=== PATIENT | female | born 1955 | race Caucasian/White ===

== ENCOUNTER 2020-10-02 10:25 | Observation (INO) | payer BC ==
[2020-10-02] MEDS ORDERED: Sodium Chloride 0.9% 1000 ML 1,000 ML IV STA (11:07)
[2020-10-02] MEDS ORDERED: solu-MEDROL 125 MG IV ONE (11:07)
[2020-10-02] MEDS ORDERED: Zofran 4 MG/2 ML VIAL IV ONE (11:10)
[2020-10-02] MEDS ORDERED: Combivent Inhaler COMMON CANISTER IH SCH (11:15)
[2020-10-02] MEDS ORDERED: Zofran 4 MG/2 ML VIAL ONE (11:19)
[2020-10-02] MEDS ORDERED: Sodium Chloride 0.9% 1000 ML 1,000 ML ONE (11:19)
[2020-10-02] MEDS ORDERED: solu-MEDROL 125 MG ONE (11:19)
[2020-10-02 11:35] LABS: A-aADO2 46; ABG HEMOGLOBIN 10.9; ABG POTASSIUM 3.4 (3.5-5.1); ABG SITE RIGHT RADIAL; ALLEN TEST OK? YES; ARTERIAL BLD GAS O2 SATURATION 99.4 % (95-100); ARTERIAL BLOOD GAS BASE EXCESS -0.2 (-2.0-2.0); ARTERIAL BLOOD GAS FIO2 28 %; ARTERIAL BLOOD GAS PCO2 29 mmHg (35-45); ARTERIAL BLOOD GAS PO2 117 mmHg (75-100); ARTERIAL BLOOD GAS pH 7.49 (7.35-7.45); CARBOXYHEMOGLOBIN 5.8 % THgb (0.0-6.9); HCO3- 22.1 (22-28); HGB O2 SAT 92.8 g/dF (94-100); Lactic Acid 1.3 (0.4-2.0); Methhemoglobin 0.8 % (1.4-1.5); paO2 pAO1 0.72
--- NOTE | 2020-10-02 11:41 | ERPHSYRPT ---
- History of Present Illness Time Seen by Provider: 10/02/20 10:36 Source: patient Exam Limitations: no limitations Patient Subjective Stated Complaint: SOB, cough, NVD Triage Nursing Assessment: pt to ED c/o SOB, cough since August and NVD onset last night. pt states she was tested for COVID in Aug and was negative at that time. denies known COVID exposure and attempts to stay home if possible. lung sounds diminished throughout. heart sounds clear. struggles with speaking in full sentences. does not wear home O2. 95% on RA. Physician History: 65 years old female with history of COPD, tobacco abuse, hypertension presented in the ER with little over a month history of cough congestion shortness of breath despite using inhaler/nebulizer and steroids with progressive worsening lately where she gets short of breath with minimal activity associated with chest tightness/wheezing but no fever or chills. She has a cough productive of clear to yellow sputum with no hemoptysis. Denies any chest pain or palpitatio ns. She also has nausea since yesterday and 2-3 episodes of loose stool since morning without any abdominal pain. Denies any known sick contact. Patient was tested in August for COVID-19 was negative but patient reports she is not been feeling well since then. Timing/Duration: week(s), intermittent, gradual onset, worse Activities at Onset: rest Severity of Dyspnea-Max: moderate Severity of Dyspnea-Current: moderate Possible Cause: occasional episodes Modifying Factors: Improves With: albuterol nebulizer. Worsens With: activity, coughing, deep breath, exertion Associated Symptoms: cough, chest pain/discomfort, edema, wheezing, ankle swelling, leg swelling, productive cough, No fever, No insomnia, No loss of oralia etite, No lightheadedness, No weakness, No chills, No calf pain, No heaviness, No painful breathing Allergies/Adverse Reactions: No Known Drug Allergies Allergy (Verified 10/02/20 15:11) Home Medications: Amlodipine Besylate 10 mg [Norvasc 10 MG] 10 mg PO DAILY 04/06/16 [History] Fluticasone Propionate [Flonase NASAL] 1 spray INTRANASAL DAILY 04/06/16 [History] Hctz/Triamterene 25/37.5 mg [Maxzide 25MG] 1 tab PO DAILY 10/02/20 [History] Sertraline HCl 50 mg PO DAILY 10/02/20 [History] Simvastatin 10 mg PO DAILY 10/02/20 [History] Hx Tetanus, Diphtheria Vaccination/Date Given: Yes Hx Influenza Vaccination/Date Given: Yes Hx Pneumococcal Vaccination/Date Given: No Travel Risk - International Travel Have you traveled outside of the country in past 3 weeks: No - Coronavirus Screening Are you exhibiting any of the following symptoms?: Yes Symptoms: Cough: New Onset, Shortness of Breath, Vomiting/Diarrhea, Headaches/Body Aches/Fatigue Close contact with a COVID-19 positive Pt in past 14-21 Days: No - Review of Systems Constitutional: Fatigue, Malaise Eyes: No Symptoms Ears, Nose, & Throat: Nose Congestion Respiratory: Cough, Dyspnea, Dyspnea on Exertion ([place]), Wheezing Cardiac: No Symptoms Abdominal/Gastrointestinal: Nausea, Diarrhea Genitourinary Symptoms: No Symptoms Musculoskeletal: Myalgias Neurological: No Symptoms Psychological: No Symptoms Endocrine: No Symptoms Hematologic/Lymphatic: No Symptoms Immunological/Allergic: No Symptoms - Past Medical History Pertinent Past Medical History: Yes Neurological History: No Pertinent History ENT History: No Pertinent History Cardiac History: High Cholesterol, Hypertension Respiratory History: No Pertinent History Endocrine Medical History: No Pertinent History Musculoskeletal History: Arthritis GI Medical History: No Pertinent History History: Other Psycho-Social History: No Pertinent History Female Reproductive Disorders: No Pertinent History Other Medical History: frequency - Past Surgical History Past Surgical History: Yes Neuro Surgical History: No Pertinent History Cardiac: Cardiac Catheterization Respiratory: No Pertinent History Gastrointestinal: Cholecystectomy Genitourinary: No Pertinent History Musculoskeletal: No Pertinent History Female Surgical History: Tubal Ligation, Other Other Surgical History: breast tumor removed at age 22, uterine ablation - Social History Smoking Status: Former smoker How long have you smoked: 30 years Exposure to second hand smoke: No Drug Use: none Patient Lives Alone: No - Female History Hx Now: No - Nursing Vital Signs Nursing Vital Signs: Initial Vital Signs Temperature 98.6 F 10/02/20 10:25 Pulse Rate 101 H 10/02/20 10:25 Respiratory Rate 25 H 10/02/20 10:25 Blood Pressure 164/94 10/02/20 10:25 O2 Sat by Pulse Oximetry 93 L 10/02/20 10:25 Pain Scale Pain Intensity 0 - Physical Exam General Appearance: no apparent distress, alert, anxiety Eye Exam: PERRL/EOMI, eyes nml inspection Ears, Nose, Throat Exam: hearing grossly normal, nasal congestion, pharyngeal erythema Neck Exam: normal inspection, non-tender, supple, full range of motion Respiratory Exam: airway intact, diminished breath sounds, wheezing, No chest tenderness, No respiratory distress Cardiovascular/Chest Exam: normal heart sounds, regular rate/rhythm Abdominal/Gastrointestinal Exam: soft, normal bowel sounds, No tenderness Extremity Exam: non-tender, normal range of motion, normal inspection Neurologic Exam: alert, oriented x 3, cooperative, 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 II-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 nml as tested Skin Exam: normal color, warm SpO2 Interpretation: normal SpO2: 95 O2 Delivery: Room Air - Course EKG Interpreted by Me: RATE ([id number]), Sinus Tach, NORMAL AXIS, prolonged QT interval, Left Bundle Branch Block, Q-wave, Non-specific ST Changes Ordered Tests: Active Orders 24 hr Category Date Time Status Bedrest with BRP/BSC ROUTINE Activity 10/02/20 15:00 Active Up With Assistance ROUTINE Activity 10/02/20 15:00 Active Dredge Operator STAT Care 10/02/20 11:08 Completed Code Status Order ROUTINE Care 10/02/20 15:00 Active EKG-ER Only STAT Care 10/02/20 11:07 Completed Fall Protocol ROUTINE Care 10/02/20 15:00 Active IV Care Q6H Care 10/02/20 15:00 Active IV Insertion STAT Care 10/02/20 11:07 Completed NPO (ED) STAT Care 10/02/20 11:[address] in Observation ROUTINE Care 10/02/20 15:00 Active Raúl Blake ROUTINE Care 10/02/20 15:00 Active Weight,Daily 0600 Care 10/02/20 15:00 Active Heart-Healthy Diet Diet 10/02/20 Dinner Active CHEST WITH CONTRAST [CT] Stat Exams 10/02/20 12:41 Completed OBSTR/ACUTE ABDOMEN SERIES Stat Exams 10/02/20 11:10 Completed ARTERIAL BLOOD GASES Stat Lab 10/02/20 11:32 Completed BLOOD CULTURE Stat Lab 10/02/20 11:40 Received CBC W DIFF AM.LAB Lab 10/03/20 04:00 Ordered CBC W DIFF Stat Lab 10/02/20 11:25 Completed CMP AM.LAB Lab 10/03/20 04:00 Ordered CMP Stat Lab 10/02/20 11:25 Completed CULTURE,URINE Stat Lab 10/02/20 16:30 Received D-DIMER QUANTITATIVE Stat Lab 10/02/20 12:13 Completed Lactic Acid Stat Lab 10/02/20 11:32 Completed MAGNESIUM Stat Lab 10/02/20 11:25 Completed NT PRO BNP Stat Lab 10/02/20 11:25 Completed TROPONIN Q3H Lab 10/02/20 11:25 Completed TROPONIN Q3H Lab 10/02/20 14:25 Completed TROPONIN Q3H Lab 10/02/20 18:03 Received TROPONIN Q3H Lab 10/02/20 20:15 Ordered TROPONIN Q3H Lab 10/02/20 23:15 Ordered UA W/RFX UR CULTURE Stat Lab 10/02/20 16:30 Completed Respiratory MDI STAT RT 10/02/20 11:44 Completed Respiratory Therapy Assessment DAILY RT 10/02/20 11:45 Active Transfer Order Routine Transfer 10/02/20 Completed Medication Summary Generic Name Dose Route Start Last Admin Trade Name Freq PRN Reason Stop Dose Admin Acetaminophen 650 mg 10/02/20 15:00 Tylenol 325 Mg PO 11/01/20 14:59 Q4H PRN PRN PAIN AND/OR FEVER Albuterol Sulfate 2.5 mg 10/02/20 19:00 Proventil 2.5 Mg/3 Ml Neb IH 11/01/20 18:59 QIDRT [facility] Amlodipine Besylate 10 mg 10/03/20 10:00 Norvasc 5 Mg PO 11/02/20 09:59 DAILY THOMAS Budesonide 0.5 mg 10/02/20 19:00 Pulmicort 0.5 Mg/2 Ml Respules IH 11/01/20 18:59 BIDRT THOMAS Famotidine 20 mg 10/02/20 22:00 Pepcid 20 Mg Vial IV 11/01/20 21:59 Q12HT THOMAS Fluticasone Propionate 0 gm 10/03/20 10:00 Flonase Nasal NS 11/02/20 09:59 DAILY THOMAS Furosemide 80 mg 10/02/20 17:00 10/02/20 16:41 Furosemide 100mg/10 Ml Vial IV 11/01/20 16:59 80 mg DAILY THOMAS Administration Azithromycin 500 mg in 250 mls @ 250 mls/hr 10/03/20 10:00 Zithromax 500 Mg/ 250 Ml Nacl Premix IV 11/02/20 09:59 Q24H10 THOMAS Ceftriaxone Sodium/Dextrose 1 g in 50 mls @ 100 mls/hr 10/03/20 10:00 Rocephin 1 Gm-D5w 50 Ml Bag IV 11/02/20 09:59 Q24H10 THOMAS Insulin Human Lispro 0 unit 10/02/20 15:00 Humalog SQ 11/01/20 14:59 UD PRN HYPERGLYCEMIA Methylprednisolone Sodium Succinate 80 mg 10/02/20 18:00 10/02/20 17:35 Solu-Medrol 125 Mg IV 11/01/20 17:59 80 mg Q6HT THOMAS Administration Sertraline HCl 50 mg 10/03/20 10:00 Zoloft 50 Mg Tablet PO 11/02/20 09:59 DAILY THOMAS Simvastatin 10 mg 10/03/20 22:00 Zocor 10mg PO 11/02/20 21:59 HS THOMAS Triamterene/Hydrochlorothiazide 1 tab 10/03/20 10:00 Maxzide-25mg Tablet PO 11/02/20 09:59 DAILY THOMAS Discontinued Medications Generic Name Dose Route Start Last Admin Trade Name Freq PRN Reason Stop Dose Admin Albuterol Sulfate 4 puff 10/02/20 11:44 10/02/20 11:30 Ventolin Common Canister 10/02/20 11:45 4 puff STAT ONE Administration Albuterol/Ipratropium 2 puff 10/02/20 11:15 Combivent Inhaler Common Canister 11/01/20 11:14 UD THOMAS Albuterol/Ipratropium 3 ml 10/02/20 19:00 10/02/20 15:08 Duoneb 0.5-3 Mg/3 Ml Neb 11/01/20 18:59 3 ml Q6HRT THOMAS Administration Sodium Chloride 1,000 mls @ 499 mls/hr 10/02/20 11:07 10/02/20 13:29 Sodium Chloride 0.9% 1000 Ml IV 10/02/20 13:07 Infused .Q2H1M STA Infusion Sodium Chloride Confirm 10/02/20 11:19 Sodium Chloride 0.9% 1000 Ml Administered 10/02/20 11:20 Dose 1,000 mls @ ud .ROUTE .STK-MED ONE Ceftriaxone Sodium/Dextrose 2 g in 50 mls @ 100 mls/hr 10/02/20 12:13 10/02/20 13:31 Rocephin 2 Gm-D5w 50ml Bag IV 10/02/20 12:42 Infused STAT STA Infusion Azithromycin 500 mg in 250 mls @ 250 mls/hr 10/02/20 12:13 10/02/20 14:39 Zithromax 500 Mg/ 250 Ml Nacl Premix IV 10/02/20 13:12 250 mls/hr STAT STA 250 mls/hr Administration Ceftriaxone Sodium/Dextrose Confirm 10/02/20 13:15 Rocephin 2 Gm-D5w 50ml Bag Administered 10/02/20 13:16 Dose 2 g in 50 mls @ ud IV .STK-MED ONE Azithromycin Confirm 10/02/20 14:39 Zithromax 500 Mg/ 250 Ml Nacl Premix Administered 10/02/20 14:40 Dose 500 mg in 250 mls @ ud IV .STK-MED ONE Methylprednisolone Sodium Succinate 125 mg 10/02/20 11:07 10/02/20 11:21 Solu-Medrol 125 Mg IV 10/02/20 11:08 125 mg STAT ONE Administration Methylprednisolone Sodium Succinate Confirm 10/02/20 11:19 Solu-Medrol 125 Mg Administered 10/02/20 11:20 Dose 125 mg .ROUTE .STK-MED ONE Ondansetron HCl 4 mg 10/02/20 11:10 10/02/20 11:21 Zofran 4 Mg/2 Ml Vial IV 10/02/20 11:11 4 mg STAT ONE Administration Ondansetron HCl Confirm 10/02/20 11:19 Zofran 4 Mg/2 Ml Vial Administered 10/02/20 11:20 Dose 4 mg .ROUTE .STK-MED ONE Lab/Rad Data: Laboratory Result Diagrams 10/02/20 11:25 10/02/20 11:25 Laboratory Results 10/02/20 10/02/20 10/02/20 Range/Units 14:25 13:05 12:13 WBC (4.0-10.5) K/mm3 RBC (4.1-5.4) M/mm3 Hgb (12.0-16.0) gm/dl Hct (35-47) % MCV (78-100) fl MCH (26-32) pg MCHC (32-36) g/dl RDW (11.5-14.0) % Plt Count (150-450) K/mm3 MPV (7.5-11.0) fl Gran % (36.0-66.0) % Eos # (Auto) (0-0.5) Absolute Lymphs (auto) (1.0-4.6) Absolute Monos (auto) (0.0-1.3) Lymphocytes % (24.0-44.0) % Monocytes % (0.0-12.0) % Eosinophils % (0.00-5.0) % Basophils % (0.0-0.4) % Absolute Granulocytes (1.4-6.9) Basophils # (0-0.4) D-Dimer 1330 H* (215-500) ng/mL Puncture Site pCO2 (35-45) mmHg pO2 (75-100) mmHg Base Excess (-2.0-2.0) O2 Saturation (94-100) g/dF ABG pH (7.35-7.45) ABG HCO3 (22-28) ABG O2 Sat (Measured) (95-100) % Nikolay Test A-a Gradient a/A Ratio Hemoglobin Carboxyhemoglobin (0.0-6.9) % THgb Methemoglobin (1.4-1.5) % Temperature C POC O2 Flow Rate % Sodium (137-145) mmol/L Potassium (3.5-5.1) mmol/L Chloride (98-107) mmol/L Carbon Dioxide (22-30) mmol/L Anion Gap (5-15) MEQ/L BUN (7-17) mg/dL Creatinine (0.52-1.04) mg/dL Estimated GFR ML/MIN Glucose (74-106) mg/dL Lactic Acid (0.4-2.0) Calcium (8.4-10.2) mg/dL Magnesium (1.6-2.3) mg/dL Total Bilirubin (0.2-1.3) mg/dL AST (14-36) U/L ALT (0-35) U/L Alkaline Phosphatase (38-126) U/L Troponin I 0.027 (0.000-0.034) ng/mL NT-Pro-B Natriuret Pep (0-900) pg/mL Serum Total Protein (6.3-8.2) g/dL Albumin (3.5-5.0) g/dL SARS-CoV-2 (PCR) NEGATIVE (NEGATIVE) 10/02/20 10/02/20 10/02/20 Range/Units 11:32 11:25 11:25 WBC (4.0-10.5) K/mm3 RBC (4.1-5.4) M/mm3 Hgb (12.0-16.0) gm/dl Hct (35-47) % MCV (78-100) fl MCH (26-32) pg MCHC (32-36) g/dl RDW (11.5-14.0) % Plt Count (150-450) K/mm3 MPV (7.5-11.0) fl Gran % (36.0-66.0) % Eos # (Auto) (0-0.5) Absolute Lymphs (auto) (1.0-4.6) Absolute Monos (auto) (0.0-1.3) Lymphocytes % (24.0-44.0) % Monocytes % (0.0-12.0) % Eosinophils % (0.00-5.0) % Basophils % (0.0-0.4) % Absolute Granulocytes (1.4-6.9) Basophils # (0-0.4) D-Dimer (215-500) ng/mL Puncture Site RIGHT RADIAL pCO2 29 L (35-45) mmHg pO2 117 H (75-100) mmHg Base Excess -0.2 (-2.0-2.0) O2 Saturation 92.8 L (94-100) g/dF ABG pH 7.49 H (7.35-7.45) ABG HCO3 22.1 (22-28) ABG O2 Sat (Measured) 99.4 (95-100) % Nikolay Test YES A-a Gradient 46 a/A Ratio 0.72 Hemoglobin 10.9 Carboxyhemoglobin 5.8 (0.0-6.9) % THgb Methemoglobin 0.8 L (1.4-1.5) % Temperature 37.0 C POC O2 Flow Rate 28 % Sodium 131 L (137-145) mmol/L Potassium 3.4 L 3.3 L (3.5-5.1) mmol/L Chloride 100 (98-107) mmol/L Carbon Dioxide 22 (22-30) mmol/L Anion Gap 12.4 (5-15) MEQ/L BUN 15 (7-17) mg/dL Creatinine 0.67 (0.52-1.04) mg/dL Estimated GFR > 60.0 ML/MIN Glucose 140 H (74-106) mg/dL Lactic Acid 1.3 (0.4-2.0) Calcium 8.9 (8.4-10.2) mg/dL Magnesium 1.9 (1.6-2.3) mg/dL Total Bilirubin 1.20 (0.2-1.3) mg/dL AST 28 (14-36) U/L ALT 23 (0-35) U/L Alkaline Phosphatase 71 (38-126) U/L Troponin I 0.022 (0.000-0.034) ng/mL NT-Pro-B Natriuret Pep 9890 H (0-900) pg/mL Serum Total Protein 6.9 (6.3-8.2) g/dL Albumin 4.0 (3.5-5.0) g/dL SARS-CoV-2 (PCR) (NEGATIVE) 10/02/20 Range/Units 11:25 WBC 13.3 H (4.0-10.5) K/mm3 RBC 4.05 L (4.1-5.4) M/mm3 Hgb 10.5 L (12.0-16.0) gm/dl Hct 34.4 L (35-47) % MCV 84.9 (78-100) fl MCH 25.9 L (26-32) pg MCHC 30.5 L (32-36) g/dl RDW 16.7 H (11.5-14.0) % Plt Count 366 (150-450) K/mm3 MPV 10.7 (7.5-11.0) fl Gran % 85.6 H (36.0-66.0) % Eos # (Auto) 0.01 (0-0.5) Absolute Lymphs (auto) 1.15 (1.0-4.6) Absolute Monos (auto) 0.73 (0.0-1.3) Lymphocytes % 8.6 L (24.0-44.0) % Monocytes % 5.5 (0.0-12.0) % Eosinophils % 0.1 (0.00-5.0) % Basophils % 0.2 (0.0-0.4) % Absolute Granulocytes 11.39 H (1.4-6.9) Basophils # 0.03 (0-0.4) D-Dimer (215-500) ng/mL Puncture Site pCO2 (35-45) mmHg pO2 (75-100) mmHg Base Excess (-2.0-2.0) O2 Saturation (94-100) g/dF ABG pH (7.35-7.45) ABG HCO3 (22-28) ABG O2 Sat (Measured) (95-100) % Nikolay Test A-a Gradient a/A Ratio Hemoglobin Carboxyhemoglobin (0.0-6.9) % THgb Methemoglobin (1.4-1.5) % Temperature C POC O2 Flow Rate % Sodium (137-145) mmol/L Potassium (3.5-5.1) mmol/L Chloride (98-107) mmol/L Carbon Dioxide (22-30) mmol/L Anion Gap (5-15) MEQ/L BUN (7-17) mg/dL Creatinine (0.52-1.04) mg/dL Estimated GFR ML/MIN Glucose (74-106) mg/dL Lactic Acid (0.4-2.0) Calcium (8.4-10.2) mg/dL Magnesium (1.6-2.3) mg/dL Total Bilirubin (0.2-1.3) mg/dL AST (14-36) U/L ALT (0-35) U/L Alkaline Phosphatase (38-126) U/L Troponin I (0.000-0.034) ng/mL NT-Pro-B Natriuret Pep (0-900) pg/mL Serum Total Protein (6.3-8.2) g/dL Albumin (3.5-5.0) g/dL SARS-CoV-2 (PCR) (NEGATIVE) - Progress Progress: improved Air Movement: good Progress Note: 10/02/20 13:06 65 years old is evaluated for cough congestion with some diarrhea along with generalized weakness fatigue. Patient has bilateral pneumonia. No PE. Started on antibiotics. Discussed with Dr. Galicia and patient is admitted. COVID-19 is negative. Blood Culture(s) Obtained: Yes Antibiotics given: Yes Discussed with : Milka Will see patient in: hospital (observation) Counseled pt/family regarding: lab results, diagnosis, rad results, smoking cessation - Departure Departure Disposition: Observation Clinical Impression: Gastroenteritis Pneumonia Qualifiers: Pneumonia type: due to unspecified organism Laterality: bilateral Lung location: lower lobe of lung Qualified Code(s): J18.9 - Pneumonia, unspecified organism Condition: Stable Critical Care Time: No
[2020-10-02] MEDS ORDERED: VENTOLIN COMMON CANISTER IH ONE (11:44)
[2020-10-02 11:51] LABS: Absolute Neutrophil Ct (ANC) 11.39 (1.4-6.9); BASOPHIL % 0.2 % (0.0-0.4); Basophil (Absolute #) 0.03 (0-0.4); Eosinophil % 0.1 % (0.00-5.0); Eosinophil (Absolute #) 0.01 (0-0.5); Hematocrit 34.4 % (35-47); Hemoglobin 10.5 gm/dl (12.0-16.0); Lymphocyte (Absolute #) 1.15 (1.0-4.6); Lymphocytes % 8.6 % (24.0-44.0); Mean Cell Volume 84.9 fl (78-100); Mean Corpuscular Hemoglobin 25.9 pg (26-32); Mean Corpuscular Hgb Concent. 30.5 g/dl (32-36); Mean Platelet Volume 10.7 fl (7.5-11.0); Monocyte (Absolute #) 0.73 (0.0-1.3); Monocytes % 5.5 % (0.0-12.0); Neutrophil % 85.6 % (36.0-66.0); Platelet Count 366 K/mm3 (150-450); Red Blood Count 4.05 M/mm3 (4.1-5.4); Red Cell Distribution Width 16.7 % (11.5-14.0); White Blood Count 13.3 K/mm3 (4.0-10.5)
--- NOTE | 2020-10-02 12:07 | XRAY ---
Indication: Short of breath, diarrhea, nausea, and vomiting. Comparison: None 2 view abdomen limited due to patient body habitus limiting evaluation of solid organs. There is paucity bowel gas without focal bowel dilatation, obstruction, or free air. Previous cholecystectomy. Osseous structures grossly intact. Single AP chest demonstrates borderline cardiomegaly with mild bibasilar infiltrates versus atelectasis right greater than left. Also tiny right effusion. Bony thorax grossly intact. Impression: 1. Nonacute nonobstructed limited abdomen. 2. Borderline cardiomegaly with bibasilar infiltrates versus atelectasis and tiny right effusion.
[2020-10-02 12:10] LABS: ALKALINE PHOSPHATASE 71 U/L (38-126); ANION GAP 12.4 MEQ/L (5-15); BLOOD UREA NITROGEN 15 mg/dL (7-17); CHLORIDE 100 mmol/L (98-107); Calcium 8.9 mg/dL (8.4-10.2); Carbon Dioxide 22 mmol/L (22-30); Creatinine 1 0.67 mg/dL (0.52-1.04); EST GLOMERULAR FILTRATION RATE > 60.0 ML/MIN; Glucose 140 mg/dL (74-106); MAGNESIUM 1.9 mg/dL (1.6-2.3); NT PRO BNP 9890 pg/mL (0-900); Potassium 3.3 mmol/L (3.5-5.1); SGOT/AST 28 U/L (14-36); SGPT/ALT 23 U/L (0-35); SODIUM 131 mmol/L (137-145); Total Protein 6.9 g/dL (6.3-8.2)
[2020-10-02] MEDS ORDERED: ROCEPHIN 2 Gm-D5w 50ML BAG** 2 G/50 ML IVPB IV STA (12:13)
[2020-10-02] MEDS ORDERED: Zithromax 500 MG/ 250 ML NaCl Premix 500 MG/250 ML IVPB IV STA (12:13)
[2020-10-02] MEDS ORDERED: ROCEPHIN 2 Gm-D5w 50ML BAG** 2 G/50 ML IVPB IV ONE (13:15)
--- NOTE | 2020-10-02 14:12 | XRAY ---
Indication: Short of breath. Pneumonia. Elevated d-dimer. Multiple contiguous axial images obtained through the chest using 100 cc Isovue 370 contrast and PE protocol. Comparison: None There is satisfactory opacification of the pulmonary arteries to include the lobar and segmental branches. However mild respiration artifact limits evaluation of the more distal lobar and segmental branches. No central pulmonary embolus. Heart is enlarged with mitral valve calcifications. Aorta is mildly arteriosclerotic without aneurysm/dissection. Small mediastinal calcified lymph nodes. No pathologic mediastinal/hilar lymphadenopathy. Lungs demonstrates moderate bilateral pleural effusions with mild bibasilar compressive atelectasis. Small right lower lobe calcified granuloma and minimal biapical subpleural cystic changes. Bony thorax intact with minimal degenerative changes throughout the spine and old nonunited left 7 rib fracture. Limited upper abdomen demonstrates 15.2 cm splenomegaly, hepatic/splenic calcified granulomas, and colonic diverticulosis. Impression: 1. Respiration artifact limits evaluation for pulmonary embolus. No central pulmonary embolus. 2. Cardiomegaly and moderate bilateral effusions. Rule out cardiac decompensation/fluid overload. 3. Incidental splenomegaly, colonic diverticulosis, chronic bony findings, and old granulomatous disease.
[2020-10-02] MEDS ORDERED: Zithromax 500 MG/ 250 ML NaCl Premix 500 MG/250 ML IVPB IV ONE (14:39)
[2020-10-02] MEDS ORDERED: TYLENOL 325 MG PO PRN (15:00)
[2020-10-02] MEDS ORDERED: HUMALOG SQ PRN (15:00)
[2020-10-02] MEDS ORDERED: Furosemide 100mg/10 ml Vial IV SCH (17:00)
[2020-10-02] MEDS: solu-MEDROL 125 MG IV SCH (17:35)
[2020-10-02 17:52] LABS: Appearance SLIGHTLY CLOUDY (CLEAR); Bilirubin NEGATIVE (NEGATIVE); Blood NEGATIVE Ery/ul (0-5); Epithelial Cells RARE /HPF (FEW); Glucose NEGATIVE (NEGATIVE); Ketones TRACE (NEGATIVE); Leukocyte Esterase LARGE (NEGATIVE); Mucus SLIGHT /HPF (NEGATIVE); Nitrite NEGATIVE (NEGATIVE); Protein,Urine Dip 100 (Negative); Specific Gravity >1.060 (1.005-1.025); Urobilinogen NEGATIVE mg/dL (0-1)
[2020-10-02] MEDS ORDERED: DUONEB 0.5-3 MG/3 ml Neb IH SCH (19:00)
[2020-10-02] MEDS: PROVENTIL 2.5 MG/3 ML NEB IH SCH (19:25)
[2020-10-02] MEDS: PULMICORT 0.5 MG/2 ML RESPULES IH SCH (19:26)
[2020-10-02] MEDS: Pepcid 20 MG VIAL IV SCH (21:37)
[2020-10-03] MEDS: solu-MEDROL 125 MG IV SCH ×3 (00:36→11:51)
[2020-10-03] MEDS: PROVENTIL 2.5 MG/3 ML NEB IH SCH ×3 (04:58→14:40)
[2020-10-03] MEDS: PULMICORT 0.5 MG/2 ML RESPULES IH SCH (04:59)
[2020-10-03 05:26] LABS: Absolute Neutrophil Ct (ANC) 13.96 (1.4-6.9); BASOPHIL % 0.1 % (0.0-0.4); Basophil (Absolute #) 0.02 (0-0.4); Eosinophil (Absolute #) 0 (0-0.5); Hematocrit 34.1 % (35-47); Hemoglobin 10.3 gm/dl (12.0-16.0); Lymphocyte (Absolute #) 0.84 (1.0-4.6); Lymphocytes % 5.6 % (24.0-44.0); Mean Corpuscular Hemoglobin 25.7 pg (26-32); Mean Corpuscular Hgb Concent. 30.2 g/dl (32-36); Mean Platelet Volume 10.2 fl (7.5-11.0); Monocyte (Absolute #) 0.22 (0.0-1.3); Monocytes % 1.5 % (0.0-12.0); Neutrophil % 92.8 % (36.0-66.0); Platelet Count 417 K/mm3 (150-450); Red Blood Count 4.01 M/mm3 (4.1-5.4); Red Cell Distribution Width 16.4 % (11.5-14.0)
[2020-10-03 05:53] LABS: ALBUMIN 4.1 g/dL (3.5-5.0); ALKALINE PHOSPHATASE 66 U/L (38-126); ANION GAP 14.5 MEQ/L (5-15); BLOOD UREA NITROGEN 17 mg/dL (7-17); CHLORIDE 99 mmol/L (98-107); Carbon Dioxide 24 mmol/L (22-30); Creatinine 1 0.97 mg/dL (0.52-1.04); EST GLOMERULAR FILTRATION RATE > 60.0 ML/MIN; Glucose 209 mg/dL (74-106); Potassium 3.7 mmol/L (3.5-5.1); SGOT/AST 26 U/L (14-36); SGPT/ALT 26 U/L (0-35); SODIUM 134 mmol/L (137-145)
[2020-10-03 06:18] LABS: Slide Review 1 YES
--- NOTE | 2020-10-03 09:14 | HP ---
CHIEF COMPLAINT: Shortness of breath. HISTORY OF PRESENT ILLNESS: The patient reports she began having problems back in August with shortness of breath. She reports she has problems every August with the change in the weather and she is allergic to something. She comes in usually a couple of times and gets medications including steroids and feels better. She was seen in the [facility] and given some fluids. At one point she began feeling better. She noticed over the past few days that she started swelling in her legs and her shortness of breath is not getting better with her usual medications. She presented herself to the emergency room and was admitted with the diagnosis of heart failure. The patient does have a previous history of cardiomyopathy when she was in her late 30's which we felt was likely due to a virus as she did get much better from that and has had no heart problems in the interim. She reports she saw Dr. Keegan Jarrett back in the day but has not seen him in quite some time. The patient has already received some IV diuretics and is already feeling much better having diuresed. PAST MEDICAL/SURGICAL HISTORY: Otherwise significant for cholecystectomy, tubal ligation, breast tumor removed at age 22 using ablation. HOME MEDICATIONS: Amlodipine 10 mg a day, Flonase nasal spray, Claritin-D, Accupril 200 mg a day. She did say she has some water pills but has not been taking them. ALLERGIES: NKDA. PHYSICAL EXAMINATION: The patient's vital signs on admission showed her temperature to be 98.6F, pulse 101, respiratory rate 25 and blood pressure 164/94. O2 saturation 93%. HEENT: Normocephalic, atraumatic. Pupils equal round reactive to light. Extraocular movements intact. Oropharynx is pink and moist. NECK: Supple without lymphadenopathy, thyromegaly or JVD. CHEST: Clear to auscultation. HEART: Regular rate and rhythm. ABDOMEN: Soft without palpable masses. EXTREMITIES: Without cyanosis or clubbing. There is trace edema present. NEUROLOGIC: The patient is alert and oriented x3. No focal deficits are noted. LAB DATA AND TESTS: The patient's laboratory studies had shown UA showing a specific gravity of 1.060, protein 100, large leukocytes, white blood cells 3-5 and red blood cells 3-5 per high power field. Her troponin was 0.027. The COVID test was negative. D-dimer was 1,330. Sugar was 140, BUN 15, creatinine 0.67. Electrolytes showed sodium slightly low at 131, potassium 3.3. Liver enzymes were normal. Her ProBNP level was 9,890. She had x-rays performed showing nonacute, nonobstructive abdomen, borderline cardiomegaly with bibasilar infiltrate versus atelectasis and tiny right effusion. The patient's white count was 13,300, hemoglobin 10.5, PLT count 266,000. ABG showed a pH of 7.49, pCO2 29, pO2 117. Otherwise CT-angiography of the chest showed the patient to be negative for pulmonary embolus. Cardiomegaly with bilateral effusions; rule out cardiac decompensation, incidental splenomegaly and chronic diverticulosis and old granulomatous disease. ASSESSMENT: A patient with congestive heart failure. She has already received IV Lasix and feeling much better. The patient will be monitored overnight. We will continue her on Lasix at 40 mg daily for now and add 10 mEq of potassium. 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
[2020-10-03] MEDS: Pepcid 20 MG VIAL IV SCH ×2 (09:49→10:04)
[2020-10-03] MEDS ORDERED: Maxzide-25MG Tablet PO SCH (10:00)
[2020-10-03] MEDS ORDERED: Maxzide 25MG PO SCH (10:00)
[2020-10-03] MEDS ORDERED: Accupril 10MG Tablet PO SCH (10:00)
[2020-10-03] MEDS ORDERED: ROCEPHIN 1 Gm-D5w 50 ml Bag** 1 G/50 ML IVPB IV SCH (10:00)
[2020-10-03] MEDS ORDERED: NORVASC 5 MG PO SCH (10:00)
[2020-10-03] MEDS ORDERED: Lasix 40 MG PO SCH (10:00)
[2020-10-03] MEDS ORDERED: Klor Con 10 MEQ PO SCH (10:00)
[2020-10-03] MEDS ORDERED: Zithromax 500 MG/ 250 ML NaCl Premix 500 MG/250 ML IVPB IV SCH (10:00)
[2020-10-03] MEDS ORDERED: Flonase NASAL NS SCH (10:00)
[2020-10-03] MEDS ORDERED: ZOLOFT 50 MG TABLET PO SCH (10:00)
[2020-10-03 11:24] VITALS: BP 130/69
[2020-10-03 15:00] VITALS: PULSE 92; O2SAT 95
[2020-10-03] MEDS ORDERED: Zocor 10MG PO SCH (22:00)
== END 2020-10-03 14:55 | disposition home or self-care (01) ==
LOC: ED 10:25 → MED SURG 14:49
PROVIDERS: ADMIT Family Medicine; ATTEND Family Medicine
DX: I50.9 Heart failure, unspecified (principal); Z79.899 Other long term (current) drug therapy
CPT/HCPCS: 36415; 36600; 71260; 74022; 80053; 81001; 82375; 82803; 83605; 83735; 83880; 84484; 85025; 85379; 87040; 87086; 93005; 93041; 93268; 93306; 94640; 94762; 96360; 96361; 96365; 96374; 96375; 99285; G0378; U0003; J0456; J0696; J1940; J2405; J2930; J7609; A9270-GY